=== PATIENT | male | born 1990 | race Caucasian/White ===

== ENCOUNTER → 2020-05-24 | Outpatient (CLI) | payer OTHER ==
--- NOTE | 2020-05-24 14:07 | REP ---
INDICATION: LBP ? PARS DEFECT VS STRESS FX'S. COMPARISON: None. TECHNIQUE: 22.0 mCi technetium 99 M MDP is injected and 3 phase bone scan in May imaging of the lumbar spine region is acquired. A SPECT acquisition is acquired and SPECT images are reviewed rotationally as well as in the reconstructed format with axial, coronal and sagittal generated slices. FINDINGS: Anterior and posterior flow study is normal. Blood pool images show uptake in bilateral kidneys. No abnormal hyperemia is seen. Delayed scan images demonstrate uptake in the urinary bladder and bilateral kidneys. There is no abnormal uptake in the lumbar spine posterior elements or vertebral bodies at any level. SPECT images are normal as well. IMPRESSION: There is no evidence to suggest acute spondylolysis or stress fracture. Normal three-phase and SPECT bone scan of the lumbar spine. <Electronically signed by Eligio Narvaez > 05/24/20 [id number]
== END ==
LOC: M RAD 09:56
PROVIDERS: ATTEND Physical Medicine & Rehabilitation
DX: M54.5 Low back pain (principal)
CPT/HCPCS: 78315; 78803; A9503

== ENCOUNTER → 2020-06-20 | Outpatient (CLI) | payer OTHER ==
[2020-06-20 14:50] LABS: PLATELET COUNT, AUTOMATED 252 10^3/uL (150-450)
[2020-06-20 15:02] LABS: INR 0.97
[2020-06-20 15:03] LABS: PARTIAL THROMBOPLASTIN TIME 34.2 SECONDS (24.2-38.5)
== END ==
LOC: M PLALAB 10:20
PROVIDERS: ATTEND Physician Assistant
DX: Z01.812 Encounter for preprocedural laboratory examination (principal)

== ENCOUNTER → 2020-08-02 | Outpatient (CLI) | payer OTHER ==
--- NOTE | 2020-08-02 14:38 | DEXAMM ---
INDICATION: LOW BACK PAIN. COMPARISON: None. TECHNIQUE: Bone density was measured using dual-energy x-ray absorptiometry (DEXA). FINDINGS: AP SPINE L1-L4 BMD 1.147 g/cm2 Young Adult T-Score -0.4 Age Matched Z-Score -0.7. LT FEMUR, TOTAL BMD 1.294 g/cm2 Young Adult T-Score 2.3 Age Matched Z-Score 1.4. LT NECK BMD 1.215 g/cm2 Young Adult T-Score 1.3 Age Matched Z-Score 1.1. RT FEMUR, TOTAL BMD 1.237 g/cm2 Young Adult T-Score 1.8 Age Matched Z-Score 1.0. RT NECK BMD 1.190 g/cm2 Young Adult T-Score 1.1 Age Matched Z-Score 1.0. IMPRESSION: There is normal bone density of the spine. There is normal bone density of the left hip. There is normal bone density of the right hip. FOLLOW-UP: Recommendation for the next bone density exam: Five years. <Electronically signed by Wilfrid Horner > 08/02/20 [id number]
== END ==
LOC: M WHC 12:43
PROVIDERS: ATTEND Physical Medicine & Rehabilitation
DX: M54.5 Low back pain (principal)